=== PATIENT | male | born 1980 | race Caucasian/White ===

== ENCOUNTER 2019-11-15 15:11 | Emergency (ER) | payer BC ==
[~2019-11-15] VITALS: Ht 180.3 cm; Wt 91.2 kg
[2019-11-15 15:20] VITALS: BP 153/85; Ht 180.3 cm; Wt 91.2 kg
== END 2019-11-15 19:30 | disposition home or self-care (01) ==
LOC: ED 15:11
DX: M54.5 Low back pain (principal); J45.909 Unspecified asthma, uncomplicated